=== PATIENT | male | born 2000 | race Caucasian/White ===

== ENCOUNTER 2024-08-15 07:42 | Day surgery (SDC) | payer BC ==
[2024-08-14 11:27] VITALS: BMI 29.8
[2024-08-15] MEDS ORDERED: AFRIN NASAL MIST 15 ML BOT ONE ×2 (08:12→09:04)
[2024-08-15] MEDS ORDERED: EPINEPHrine 1 MG/ML VIAL ONE (09:03)
[2024-08-15] MEDS ORDERED: Lidocaine 1% (PF) 30 ML VIAL ONE (09:04)
[2024-08-15] MEDS ORDERED: Ondansetron PF 4 MG/2 ML Vial ONE (09:04)
[2024-08-15] MEDS ORDERED: Dexamethasone 20 MG/5 ML VIAL ONE (09:04)
[2024-08-15] MEDS ORDERED: PROPOFOL 20 ML ONE ×2 (09:04→09:29)
[2024-08-15] MEDS ORDERED: fentaNYL 50 mcg/mL 1 mL Vial ONE ×2 (09:04→10:52)
[2024-08-15] MEDS ORDERED: Dexmedetomidine 200 MCG/2 ML VIAL ONE (09:05)
[2024-08-15] MEDS ORDERED: SUCCINYLCHOLINE/SOD CL,ISO/PF 200 MG/10 ML SYRINGE FS ONE (09:05)
[2024-08-15] MEDS ORDERED: Lidocaine 1% PF 5 ML VIAL ONE (09:07)
[2024-08-15] MEDS ORDERED: Water For Injection,Sterile 20 ML ONE (09:07)
[2024-08-15] MEDS ORDERED: Triamcinolone 40 MG/ML VIAL ONE ×2 (10:05→10:08)
[2024-08-15] MEDS ORDERED: Oxymetazoline HCl 0.05% ( 15 ML ) ONE (10:14)
[2024-08-15] MEDS ORDERED: Hydrocodone-Acetamin 15 ML UDCUP ONE (11:31)
== END 2024-08-15 12:58 | disposition home or self-care (01) ==
LOC: CSHSDC 07:42
PROVIDERS: ATTEND Specialist
PROC: 099Q8ZZ Drainage of Right Maxillary Sinus, Via Natural or Artificial Opening Endoscopic (ICD-10-PCS; principal; 2024-08-15)
PROC: 099S8ZZ Drainage of Right Frontal Sinus, Via Natural or Artificial Opening Endoscopic (ICD-10-PCS; principal; 2024-08-15)
PROC: 099T8ZZ Drainage of Left Frontal Sinus, Via Natural or Artificial Opening Endoscopic (ICD-10-PCS; principal; 2024-08-15)
PROC: 09BU8ZZ Excision of Right Ethmoid Sinus, Via Natural or Artificial Opening Endoscopic (ICD-10-PCS; principal; 2024-08-15)
PROC: 09BV8ZZ Excision of Left Ethmoid Sinus, Via Natural or Artificial Opening Endoscopic (ICD-10-PCS; principal; 2024-08-15)
PROC: 099W8ZZ Drainage of Right Sphenoid Sinus, Via Natural or Artificial Opening Endoscopic (ICD-10-PCS; principal; 2024-08-15)
PROC: 099R8ZZ Drainage of Left Maxillary Sinus, Via Natural or Artificial Opening Endoscopic (ICD-10-PCS; principal; 2024-08-15)
PROC: 099X8ZZ Drainage of Left Sphenoid Sinus, Via Natural or Artificial Opening Endoscopic (ICD-10-PCS; principal; 2024-08-15)
DX: J34.3 Hypertrophy of nasal turbinates (principal); J32.4 Chronic pansinusitis; J33.9 Nasal polyp, unspecified; J45.909 Unspecified asthma, uncomplicated
CPT/HCPCS: J0171; J1100; J2405; J2704; J3010; J3301